=== PATIENT | female | born 1955 | race Caucasian/White ===

== ENCOUNTER → 2018-01-08 09:38 | Outpatient (CLI) | payer BC | END | disposition home or self-care (01) | LOC: D.MRI 09:38 | DX: G45.9 Transient cerebral ischemic attack, unspecified (principal) ==

== ENCOUNTER 2019-03-10 10:02 | Outpatient (CLI) | payer BC ==
[~2019-03-10] VITALS: Ht 162.6 cm; Wt 89.5 kg
--- NOTE | ~2019-03-10 | HEMODYNAMI ---
PATIENT:NANO BANERJEE MEDICAL RECORD: [id number] : 53 LOCATION:[facility] ADMISSION DATE: 03/10/19 Generatedon:03/10/201913:02 Patient name: NANO BANERJEE Patient #: [id number] SSN: : Date of study: 03/10/2019 Page: Of Hemodynamic Procedure Report Patient Data Patient Demographics Procedure consent was obtained First Name: NANO Gender: Female Last Name: : 1955 [facility] Initial: B Age: 63 year(s) Patient #: [id number] Race: Unknown Additional ID: [id number] Contact details [address]: [address] [place] [address] State: [place] City: [place] Zip code: [address] Past Medical History Allergies: No known allergies Admission Admission Data Admission Date: 03/10/2019 Admission Time: 10:02 Height (in.): 25.2 BSA: 1.4 (m2) Height (cm.): 64 BMI: 493.16 (kg/m2) Weight (lbs.): 445.34 Weight (kg.): 202 Lab Results Lab Result Date: 03/10/2019 Lab Result Time: 0:00 Biochemistry Name Units Result Min Max BUN mg/dl 16 --(---*)-- 7 18 Creatinine mg/dl 0.8 --(-*--)-- 0.6 1.3 CBC Name Units Result Min Max Hemoglobin g/dl 12.6 -*(----)-- 13.5 17.5 Procedure Procedure Types Cath Procedure Diagnostic Procedure C [facility] w/Coronaries Sedation Charges Moderate Sedation up to 15 minutes PCI Procedure Coronary Stent Coronary Stent Initial x2 Procedure Description Procedure Date Procedure Date: 03/10/2019 Procedure Start Time: 12:16 Procedure End Time: 12:39 Procedure Staff Name Function Jazmyne Eubanks RT Scrub Luis Chin RN Nurse Marco Antonio Guevara MD Performing Physician Kiara Tate RT Monitor Procedure Data Cath Procedure Fluoroscopy Diagnostic fluoroscopy Total fluoroscopy Time: 6.1 time: 6.1 min min Diagnostic fluoroscopy Total fluoroscopy dose: 692 dose: 692 mGy mGy Contrast Material Contrast Material Type Amount (ml) Isovue 300 96 Entry Location Entry Primary Successful Side Size Upsize Upsize Entry Closure Succes sful Closure Location (Fr) 1 (Fr) 2 (Fr) Remarks Device Remarks Radial Right 6 Fr artery Short Femoral Right 6 Fr Exoseal artery Short Estimated blood loss: 10 ml Diagnostic catheters Device Type Used For End Catheter Placement DIAGNOSTIC [place] 110cm 5 Procedure Fr catheter ([id number]) Procedure Complications No complications Procedure Medications Medication Administration Route Dosage Oxygen etCO2 Nasal cannula 2 l/min Lidocaine 2% added to field 20 Heparin Flush Bag added to field 2 bags (1000units/500ml NS) 0.9% NaCl I.V. 100 ml/hr Radial Cocktail I.A. 1 syringe (Verapomil 2mg/Nitro 400mcg/Heparin 1500units) Zofran I.V. 4 mg Versed I.V. 1 mg Fentanyl I.V. 50 mcg Versed I.V. 1 mg Fentanyl I.V. 50 mcg Radial Cocktail I.A. 1 syringe (Verapomil 2mg/Nitro 400mcg/Heparin 1500units) Heparin Bolus I.V. 4000 units Integrilin (Bolus I.V. 7.9 ml 2mg/ml) Plavix P.O. 600 mg Phenergan 25 mg Hemodynamics Rest BSA: 1.4 (m2) HGB: 12.6 (g/dl) O2 Consumption: Estimated: 147.45 (ml/min) O2 Con sumption indexed: Estimated:105.32 (ml/min/m) Heart Rate: 101 (bpm) Pressure Samples Time Site Value (mmHg) Purpose Heart Use Rate(bpm) 12:20 LV 92/10,24 Snapshot 101 12:20 LV 112/16,21 Pullback 92 12:20 AO 104/63(82) Pullback 92 Gradients Valve Time Site 1 Site 2 Mean SEP/DFP Peak To Heart Use (mmHg) (sec/min) Peak Rate (mmHg) (bpm) Aortic 12:20 LV AO 6 18 8 92 112/16,21 104/63(82) Calculations Valve P-P Mean Valve Index Valve Source Name Gradient Area Flow (cm2) Aortic 8 6 8 6 Snapshots Pre Cath Intra NCS Post Cath Vital Signs Time Heart Resp SPO2 etCO2 NIBP (mmHg) Rhythm Pain Sedation Rate (ipm) (%) (mmHg) Status Level (bpm) 12:09:32 67 69 94 17.1 139/73(94) NSR 0 (11) 10(A) , No pain 12:13:42 72 10 95 24.5 126/69(104) NSR 0 (11) 10(A) , No pain 12:17:49 78 19 96 35.6 110/63(82) NSR 0 (11) 10(A) , No pain 12:21:49 86 23 98 32.7 125/70(97) NSR 0 (11) 9(A) , No pain 12:25:55 83 17 97 34.9 128/68(100) NSR 0 (11) 9(A) , No pain 12:29:59 92 21 99 31.9 133/72(102) NSR 0 (11) 9(A) , No pain 12:34:04 88 27 100 32.7 146/76(103) NSR 0 (11) 10(A) , No pain 12:38:16 80 14 100 36.4 129/66(97) NSR 0 (11) 10(A) , No pain Medications Time Medication Route Dose Verified Delivered Reason Not es Effectiveness by by 12:07:38 Oxygen etCO2 2 l/min Marco Antonio Smith used for Nasal Ismael Chin RN procedure cannula 12:07:45 Lidocaine 2% added 20ml Marco Antonio Bernard for local to vial Ismael Guevara MD anesthetic field 12:07:52 Heparin Flush added 2 bags Marco Antonio Bernard used for Bag to Ismael Guevara MD procedure (1000units/500ml field NS) 12:08:05 0.9% NaCl I.V. 100 Marco Antoniolisa Smith used for ml/hr Ismael Chin RN procedure 12:08:25 Zofran I.V. 4 mg Marco Antonio Smith Per physician pt states Ismael Chin RN nausea with medications on empty stomach. 12:15:37 Versed I.V. 1 mg Marco Antonio Smith for sedation Ismael Chin RN 12:15:43 Fentanyl I.V. 50 mcg Marco Antonio Smith for sedation Ismael Chin RN 12:17:10 Radial Cocktail I.A. 1 Marco Antonio arthur (Verapomil syringe Ismael Guevara MD vasodilation 2mg/Nitro 400mcg/Hepari 12:21:50 Versed I.V. 1 mg Marco Antonio Smith for sedation Ismael Chin RN 12:21:53 Fentanyl I.V. 50 mcg Marco Antonio Smith for sedation Ismael Chin RN 12:23:01 Radial Cocktail I.A. 1 Marco Antonio arthur (Verapomil syringe Ismael Guevara MD vasodilation 2mg/Nitro 400mcg/Hepari 12:25:12 Heparin Bolus I.V. 4000 Marco Antonio Smith for aiden ified units Ismael Chin RN anticoagulation with dr guevara 12:26:10 Integrilin I.V. 7.9 ml Marco Antonio arthur was cira 2.1 (Bolus 2mg/ml) Ismael Chin RN antiplatelet ml of vial therapy 12:33:42 Plavix P.O. 600 mg Marco Antonio Smith for Ismael Chin RN antiplatelet therapy 12:52:03 Phenergan IM to 25 mg Marco Antonio Smith Per physician Pt dry RT GM. Ismael Chin RN heaving and states needs to vomit. Procedure Log Time Note 11:51:59 Patient Height : 25.2 inches 11:52:01 Patient Weight : 445.34 lbs 11:55:36 Lab Result : Hemoglobin 12.6 g/dl 11:55:36 Lab Result : Creatinine 0.8 mg/dl 11:55:36 Lab Result : BUN 16 mg/dl 11:56:28 Diagnostic Cath status Elective 11:56:31 Marco Antonio Guevara MD sent for patient. Start room use. 11:56:32 Time tracking: Regular hours (M-F 7:00 - 5:00) 11:56:38 Plan of Care:Hemodynamics will remain stable., Cardiac rhythm will remain stable., Comfort level will be maintained., Respiratory function will remain adequate., Patient/ family verbilizes understanding of procedure., Procedure tolerated without complication., Recovers from procedure without complications.. 11:56:47 Patient received from Pre/Post Procedure Room to CCL 2 Alert and oriented. Tansferred to table in Supine position. 11:56:49 Correct patient and procedure confirmed by team. 11:56:49 Warm blankets applied, and sigrid hugger turned on for patient comfort. 11:56:51 Signed procedure consent form obtained from patient. 11:56:53 ECG and BP/O2 sat monitors applied to patient. 11:57:03 H&P Date Dictated: 03/04/2019 Within 30 days and on chart., H&P Addendum completed by physician on day of procedure. (MUST COMPLETE FOR ALL OUTPATIENTS). 11:57:10 Family in waiting room. 11:57:13 Patient NPO since Midnight. 11:57:25 Patient allergic to No known allergies 12:01:52 Is the patient allergic to Iodine/contrast media? No. 12:01:53 Was the patient premedicated? No 12:01:54 Is patient on blood thinner?No 12:01:55 Patient diabetic? No. 12:01:58 Previous problem with sedation/anesthesia? No ? 12:01:59 Snore? Yes 12:02:00 Sleep apnea? No 12:02:01 Opens mouth fully? Yes 12:02:01 Deviated septum? No 12:02:02 Sticks out tongue? Yes 12:02:03 Airway obstruction? No ? 12:02:06 Dentures? No ? 12:02:11 Pre procedure: right dorsailis pedis pulse 2+ Normal; easily identifiable; not easily obliterated 12:02:13 Pre procedure: left dorsailis pedis pulse 2+ Normal; easily identifiable; not easily obliterated 12:02:15 Patient pain scale 0/10 ?. 12:02:20 IV patent on arrival in left antecubital with 0.9% NaCl at KVO. 12:02:23 Lab results completed and on chart. 12:02:26 Right Radial & Right Groin area was prepped with chlora-prep and draped in sterile fashion 12:02:27 Sharps counted by scrub and verified by R.N. 12:02:27 Alarms reviewed by R. N. 12:07:23 Use device set Radial Dx or PCI 12:07:25 Medline Cath Pack ([id number]) opened to sterile field. 12:07:25 ACIST Syringe (93863) opened to sterile field. 12:07:26 DIAGNOSTIC WIRE .035 260cm J wire (941351) opened to sterile field. 12:07:26 Bag Decanter (2002) opened to sterile field. 12:07:27 ACIST Manifold (30277) opened to sterile field. 12:07:27 ACIST Hand Control (24809) opened to sterile field. 12:07:28 Tegaderm 4 x 4 (1626W) opened to sterile field. 12:07:29 MBrace Wrist Support (715336666) opened to sterile field. 12:07:32 SHEATH 6FR Slender (79-3430) opened to sterile field. 12:07:38 Oxygen 2 l/min etCO2 Nasal cannula was administered by Luis Chin RN; used for procedure; 12:07:45 Lidocaine 2% 20ml vial added to field was administered by Marco Antonio Guevara MD; for local anesthetic; 12:07:52 Heparin Flush Bag (1000units/500ml NS) 2 bags added to field was administered by Marco Antonio Guevara MD; used for procedure; 12:08:05 0.9% NaCl 100 ml/hr I.V. was administered by Luis Chin RN; used for procedure; 12:08:24 Vital chart was started 12:08:25 Zofran 4 mg I.V. was administered by Luis Chin RN; Per physician; pt states nausea with medications on empty stomach. 12:13:14 Zero performed for pressure channel P1 12:14:58 Physician arrived 12:14:59 --------ALL STOP TIME OUT------ 12:15:00 Final Timeout: patient, procedure, and site verified with staff and physician. All members of the team are in agreement. 12:15:04 Right Radial & Right Groin site verified by team. 12:15:37 Versed 1 mg I.V. was administered by Luis Chin RN; for sedation; 12:15:43 Fentanyl 50 mcg I.V. was administered by Luis Chin RN; for sedation; 12:15:45 Maximum allowable Isovue 300 dose 300ml. Physician notified. (300ml for normal creatinines. For patients with creatinine of 1.7 or higher multiply weight(kg) x 5 divided by creatinine.) 12:15:50 Fire Safety Assessment: A--An alcohol-based skin anteseptic being used preoperatively., C--Open oxygen or nitrous oxide is being used., D--An ESU, laser, or fiber-optic light is being used. 12:15:55 Physical assessment completed. ASA score P 2 - A patient with mild systemic disease as per Marco Antonio Guevara MD. 12:16:00 Sedation plan: IV Moderate Sedation Medication:Versed, Fentanyl 12:16:08 Full Disclosure recording started 12:16:08 Procedure started. 12:16:14 Local anesthetic to right radial artery with Lidocaine 2% by Marco Antonio Guevara MD.INITIAL ACCESS ONLY 12:16:27 A 6 Fr Short sheath was inserted into the Right Radial artery 12:17:10 Radial Cocktail (Verapomil 2mg/Nitro 400mcg/Heparin 1500units) 1 syringe I.A. was administered by Marco Antonio Guevara MD; for vasodilation; 12:18:43 GLIDE WIRE ANGLE 260cm (KF3220) opened to sterile field. 12:19:04 A DIAGNOSTIC [place] 110cm 5 Fr catheter (093875) was advanced over the wire and used for Procedure. 12:19:07 LV gram done using BRUCE 12:20:50 EF : 60 % 12:20:54 LV angiography performed. 12:21:01 LCA angiography performed. 12::27 RCA angiography performed. 12::50 Versed 1 mg I.V. was administered by Luis Chin RN; for sedation; 12::53 Fentanyl 50 mcg I.V. was administered by Luis Chni RN; for sedation; 12:22:11 Catheter removed. 12:22:12 Proceeding to intervention. 12:23:01 Radial Cocktail (Verapomil 2mg/Nitro 400mcg/Heparin 1500units) 1 syringe I.A. was administered by Marco Antonio Guevara MD; for vasodilation; 12:24:16 Local anesthetic to right femoral artery with Lidocaine 2% by Marco Antonio Guevara MD.ADDITIONAL ACCESS 12::27 A 6 Fr Short sheath was inserted into the Right Femoral artery 12:24:38 6 Fr XBLAD3.5 guide catheter was inserted over the wire 12:24:53 choice pt ex wire advanced. 12:25:12 Heparin Bolus 4000 units I.V. was administered by Luis Chin RN; for anticoagulation; verified with dr guevara 12:26:10 Integrilin (Bolus 2mg/ml) 7.9 ml I.V. was administered by Luis Chin RN; for antiplatelet therapy; wasted 2.1 ml of vial 12:27:14 CHOICE PT Extra Support 182cm wire ([id number]) opened to sterile field. 12:27:14 GUIDE 6FR XBLAD 3.5 catheter ([id number]) opened to sterile field. 12:27:15 INFLATOR Merit BasixCompak (MU5531) opened to sterile field. 12:28:08 Place stent Inflation Number: 1 A MARIEL RX 2.5 x 08 stent ([id number]) was prepped and advanced across the Mid CX. The stent was deployed at 11 ARISTEO for 0:04 (min:sec). 12:28:17 Wire redirected to LAD. 12:28:21 Wire advanced across lesion. 12:30:25 Place stent Inflation Number: 1 A MARIEL RX 2.5 x 26 stent ([id number]) was prepped and advanced across the Prox LAD. The stent was deployed at 11 ARISTEO for 0:31 (min:sec). 12:31:05 Wire removed. 12:32:01 Guide catheter removed. 12:32:13 Sheath removed intact; hemostasis achieved with Exoseal to the Right Femoral artery. 12:32:48 Procedure ended.(Physican Out) 12:32:59 Fluoroscopy time 06.10 minutes. 12:33:05 Fluoroscopy dose: 692 mGy 12:33:05 Flurop Dose total: 692 12:33:11 Contrast amount:Isovue 300 96ml. 12:33:18 TR band inflated with 12cc of air. 12:33:36 TR BAND Standard ([id number]) opened to sterile field. 12:33:37 EXOSEAL 6Fr (EX600) opened to sterile field. 12:33:42 Plavix 600 mg P.O. was administered by Luis Chin RN; for antiplatelet therapy; 12:33:44 Insertion/operative site no bleeding no hematoma. 12:33:49 Post-op/insertion site Right Femoral artery dressed using a 4 x 4 and Tegaderm. 12:33:50 Post Procedure Pulses reassessed and unchanged 12:33:54 Post-procedure physical assessment completed. ASA score P 2 - A patient with mild systemic disease as per Marco Antonio Guevara MD. 12:33:57 Post procedure rhythm: unchanged. 12:34:02 Estimated blood loss: 10 ml 12:38:18 Post procedure instruction explained to patient.Patient verbalizes understanding. 12:38:43 Procedure type changed to Cath procedure, Diagnostic procedure, C, C w/Coronaries, Sedation Charges, Moderate Sedation up to 15 minutes, PCI procedure, Coronary Stent, Coronary Stent Initial x2 12:38:47 Procedure and supply charges have been captured, reviewed, submitted and are correct. 12:39:33 Procedure Complication : No complications 12:39:35 Vital chart was stopped 12:39:36 See physician's report for complete and final results. 12:39:38 Report given to Pre/Post Procedure Room. 12:39:40 Full Disclosure recording stopped 12:39:40 Procedure ended. 12:39:44 End room use (Document Last) 12:39:52 ACC-PCI Only Patient was given prescriptions, or instructed by Marco Antonio Guevara MD to start/continue the following medications upon discharge: Aspirin, Plavix 12:52:03 Phenergan 25 mg IM to RT GM. was administered by Luis Chin RN; Per physician; Pt dry heaving and states needs to vomit. Intervention Summary Intervention Notes Time ActionType Lesion and Equipment Used Action# Pressure Duration Attributes 12:28:08 Place stent Mid CX MARIEL RX 2.5 x 1 11 00:04 08 stent ([id number]) 12:30:25 Place stent Prox LAD MARIEL RX 2.5 x 1 11 00:31 26 stent ([id number]) Device Usage Item Name Manufacture Quantity Catalog Number Hospital Part Current M inimal Lot# / Charge Number Stock Stock Serial# Code ACIST Syringe Acist 1 06446 780800 163368 055546 2 0 (12248) Medical Systems Inc Medline Cath Medline 1 [id number] 879100 81156 383436 5 Pack ([id number]) Bag Decanter Microtek 1 691838 78390 005682 5 () Medical Inc. DIAGNOSTIC St [place] 1 345601 603486 000073 978707 3 0 WIRE .035 260cm J wire (328641) ACIST Hand Acist 1 97660 734729 143351 576125 5 Control Medical (76303) Systems Inc ACIST Manifold Acist 1 28373 545688 460724 779645 5 (80849) Medical Systems Inc Tegaderm 4 x 4 3M 1 1626W 323641 171394 514674 5 (1626W) MBrace Wrist Advanced 1 140-0250-00 740166 85562 728846 5 Support Vascular (957498144) Dynamics SHEATH 6FR Terumo 1 [id number] 366485 153366 102217 5 Slender (80-1060) GLIDE WIRE Terumo 1 TI9327 655056 456286 112245 5 ANGLE 260cm (NI9732) DIAGNOSTIC Terumo 1 40-5013 124671 911245 862129 5 [place] 110cm 5 Fr catheter (510044) GUIDE 6FR Cardinal 1 [id number] 663662 660896 685327 1 0 XBLAD 3.5 Health catheter (70220476) CHOICE PT Trosper 1 [id number] 213276 921573 030317 5 Extra Support Scientific 182cm wire (0470073P7) INFLATOR Merit Merit 1 WR3594 807461 073585 494408 1 5 [employer] technology[facility] Medical (KZ2763) MARIEL RX 2.5 x Medtronic 1 [id number] 722280 0893848 019989 5 [id number] 08 stent ([id number]) MARIEL RX 2.5 x Medtronic 1 [id number] 867877 5276585 757238 5 [id number] 26 stent ([id number]) TR BAND Terumo 1 IOP66-VOD 192950 804508 188688 4 0 Standard (PVT40OWN) EXOSEAL 6Fr Cardinal 1 EX600 258190 500103 830020 1 0 (EX600) Health Signature Audit [place] Stage Time Signature Unsigned Intra-Procedure 03/10/2019 Kiara Tate 12:41:22 PM RT(R) RT(R) 03/10/2019 12:51:32 PM Intra-Procedure 03/10/2019 Jazmyne Eubanks 1:02:09 PM RT(R) Signatures Monitor : Kiara Tate Signature : RT Date : Time : [facility] [address] [place] [address]
[2019-03-10] MEDS ORDERED: LEVOTHYROXINE112 MCG PO (10:14)
[2019-03-10] MEDS ORDERED: LISINOPRIL10 MG PO (10:14)
[2019-03-10] MEDS ORDERED: ZOCOR10 MG PO (10:14)
[2019-03-10] MEDS ORDERED: VITAMIN D250000 UNIT PO (10:16)
[2019-03-10] MEDS ORDERED: OMEGA-3100 MG PO (10:17)
[2019-03-10] MEDS ORDERED: CO Q-10100 MG PO (10:17)
[2019-03-10] MEDS ORDERED: B-12 DOTS500 MCG PO (10:18)
[2019-03-10 10:31] VITALS: BP 168/76; Ht 162.6 cm; Wt 89.5 kg
[2019-03-10 10:46] LABS: BASOPHILS 0.2 % (0-2); EOSINOPHILS 3.5 % (0-7); HEMATOCRIT 37.6 % (36.0-48.0); HEMOGLOBIN 12.6 g/dL (12-16); MCH 38.3 pg (26.0-34.0); MCHC 33.5 g/dL (31.0-37.0); MCV 114.3 fL (80.0-100.0); MEAN PLATELET VOLUME 9.7 fL (7.4-10.4); MONOCYTES 9.8 % (2-11); NEUTROPHILS 50.5 % (40-80); PLATELET COUNT 226 10x3/uL (130-400); RBC 3.29 10x6/uL (4.00-5.40); RDW 13.9 % (11.5-14.5); WBC 6.3 10x3/uL (4.8-10.8)
[2019-03-10 10:58] LABS: CALC OSMOLALITY 278 mosm/kg (275-300); CALCIUM 8.6 mg/dL (8.5-10.1); CARBON DIOXIDE 27.4 mmol/L (21.0-32.0); CHLORIDE - SERUM 104 mmol/L (98-107); CREATININE - SERUM 0.8 mg/dL (0.6-1.3); GLUCOSE 97 mg/dL (74-106); SODIUM 139 mmol/L (136-145); UREA NITROGEN 16 mg/dL (7-18); eGFR NON AFRICAN AMERICAN 76 mL/min (90-120)
[2019-03-10] MEDS ORDERED: PLAVIX75 MG PO (12:45)
--- NOTE | 2019-03-10 13:05 | NUR ---
PT RECEIVED VIA STRETCHER FROM CABINET FINISHER FOR RECOVERY. PT DROWSY BUT AWAKE. TR BAND AND IMMOBILIZER TO R WRIST IN PLACE, DRESSING CDI NO BLEEDING OR HEMATOMA NOTED. 6FR EXOCELE TO R GROIN, DRESSING CDI NO BLEEDING OR HEMATOMA NOTED. R LEG PINK/WARM PEDAL PULSES PALPABLE. PT INSTRUCTED TO KEEP HEAD ON PILLOW AND R LEG STRAIGHT. HR NSR RATE 79 BP 179/77, O2 SAT 99 ON 2L/NC O2. FAMILY AT BEDSIDE. PT DENIES ANY PAIN OR DISCOMFORT. C/O NAUSEA BACK IN CABINET FINISHER AND PHENERGAN GIVEN. CALL LIGHT IN REACH
--- NOTE | 2019-03-10 13:15 | NUR ---
PT RESTING COMFORTABLY. R WRIST W TR BAND IN PLACE NO BLEEDING OR SWELLING NOTED. R GROIN SOFT DRESSING CDI NO BLEEDING OR SWELLING NTOED. FAMILY AT BEDSIDE. PT STATES NAUSEA IS MUCH BETTER, SIPS OF SPRITE GIVEN. CALL LIGHT IN REACH. VSS. O2 REMOVED PER PT REQUEST, O2 SAT 97 ON ROOM AIR.
[2019-03-10] MEDS ORDERED: ASPIRIN81 MG PO (13:22)
--- NOTE | 2019-03-10 13:45 | NUR ---
TR BAND TO R/WRIST IS CDI AND 6 FR EXOSEAL R/GROIN IS CDI PATIENT DENIED PAIN OR NEEDS. HR79 BP 148/68 CHEST PAIN IS DENIED
--- NOTE | 2019-03-10 14:00 | NUR ---
PT C/O NAUSEA, VOMITED MOD AMOUNT. ORDERS RECEIVED, ZOPRAN 4MG GIVEN IVP. COOL CLOTH TO FOREHEAD. TR BAND TO R WRIST IN PLACE, DRESSING REMAINS CDI NO BLEEDING OR SWELLING. R GROIN DRESSING CDI NO BLEEDING OR SWELLING NOTED. PEDAL PULSES PALPABLE. VSS. PT DENIES ANY OTHER PAIN OR NEEDS. FAMILY AT BEDSIDE, CALL LIGHT IN REACH.
--- NOTE | 2019-03-10 14:30 | NUR ---
PT RESTING COMFORTABLY, STATES NAUSEA IS MUCH BETTER. R WRIST DRESSING CDI NO BLEEDING OR SWELLING NOTED. R GROIN DRESSING CDI NO BLEEDING OR HEMATOMA NOTED. VSS, FAMILY AT BEDSIDE. CALL LIGHT AT BEDSIDE.
--- NOTE | 2019-03-10 14:58 | NUR ---
PT STATES SLIGHT NAUSEA, BP 102/63, IV FLUIDS OPENED FOR BOLUS. HR 68, 02 SAT 97% ON ROOM AIR. R TR BAND AND IMMOBILIZER IN PLACE, DRESSING CDI NO BLEEDING OR SWELLING NOTED. R GROIN DRESSING CDI NO BLEEDING OR SWELLING NOTED. CALL LIGHT IN REACH, FAMILY AT BEDSIDE.
--- NOTE | 2019-03-10 15:11 | NUR ---
BP BETTER, 131/65. PT SLEEPING, FAMILY STATES NO MORE C/O NAUSEA.
--- NOTE | 2019-03-10 15:45 | NUR ---
HEAD OF BED INC TO 30 DEGREES. TOLERATED WELL. 3cc OF AIR REMOVED FROM TR BAND. NO BLEEDING/HEMATOMA NOTED. PT SET UP WITH JELLO AND DRINK. DID NOT WANT SANDWICH TRAY. DENIES NAUSEA, BUT SHE "DON'T WANNA CHANCE IT". FAMILY AT BEDSIDE. VSS. RIGHT GROIN DRESSING C/D/I. NO S/S OF HEMATOMA NOTED.
--- NOTE | 2019-03-10 16:10 | NUR ---
3cc OF AIR REMOVED FROM TR BAND. PT TOLERATED JELLO. DENIES NAUSEA. VSS. NO BLEEDING/HEMATOMA NOTED TO RIGHT WRIST. FAMILY AT BEDSIDE.
--- NOTE | 2019-03-10 16:50 | NUR ---
LEFT ARM PIV D/C'D WITH CATH TIP INTACT. PT TOLERATED WELL. PT INSTRUCTED TO GET DRESSED. FAMILY AT BEDSIDE TO ASSIST.
--- NOTE | 2019-03-10 17:00 | NUR ---
DISCUSSED DISCHARGE INSTRUCTIONS WITH PT AND PT'S FAMILY. THEY VOICED UNDERSTANDING. PT TAKEN TO RESTROOM BY WHEELCHAIR. VOIDED WITHOUT DIFFICULTY.
--- NOTE | 2019-03-10 17:15 | NUR ---
PT TAKEN OUT TO VEHICLE BY WHEELCHAIR. NO S/S OF DISTRESS NOTED. ALL PAPERWORK AND BELONGINGS IN HAND.
[2019-03-11] MEDS ORDERED: CELEXA20 MG PO (21:17)
[2019-03-11] MEDS ORDERED: RANITIDINE HCL150 M1 PO (21:18)
--- NOTE | 2019-03-12 15:12 | OP ---
PATIENT NAME: NANO BANERJEE MEDICAL RECORD: [id number] :53 LOCATION:D.CAT ADMISSION DATE: SURGEON: ASTRID ROCKWELL MD DATE OF OPERATION: 03/10/2019 PROCEDURES: 1. PTCA stent LAD. 2. PTCA stent left circumflex. 3. Left heart catheterization. 4. Selective coronary angiography. 5. Left ventriculogram. INDICATION: Angina and coronary artery disease. PROCEDURE PERFORMED: After informed consent was obtained and after detailed description of risks, benefits as well as alternative therapies, the patient elected to proceed with angiogram and angioplasty. The right femoral area was prepped and draped in normal sterile fashion. Right femoral artery was cannulated via modified Seldinger technique with placement of 6-Indones[place] sheath. All catheters exchanged through this sheath. FINDINGS: Left ventriculogram performed in standard 30-degree BRUCE view, reveals good cardiac wall motion throughout all segments. Overall ejection fraction estimated 60%. SELECTIVE CORONARY ANGIOGRAPHY: 1. Left main is with no significant angiographic disease. 2. Left anterior descending had 90% stenosis proximally. 3. The left circumflex has 80% stenosis in mid vessel. 4. Right coronary has mild irregularities, but no flow-limiting stenosis. PTCA STENT OF THE LAD AND CIRCUMFLEX: The LAD was addressed with a 2.5 x 26 mm Kareem, the left circumflex was addressed with a 2.5 x 8 mm Kareem. Result was 0% residual. IMPRESSION: Successful PTCA stent of the LAD and circumflex, both going from 80% to 90% initial stenosis to 0% residual. TRANSINT:[id number] Voice Confirmation ID: [id number] DOCUMENT ID: [id number] ASTRID ROCKWELL MD at 1512 CC: [id number] DICTATION DATE: 03/10/19 1242 BEADING SAWYER: 03/10/19 1358 DEP CLI 03/10/19 [place] [id number]
== END 2019-03-10 17:15 | disposition home or self-care (01) ==
LOC: D.CATH 10:02
PROVIDERS: ATTEND Internal Medicine Interventional Cardiology
DX: I25.119 Atherosclerotic heart disease of native coronary artery with unspecified angina pectoris (principal); Z01.812 Encounter for preprocedural laboratory examination

== ENCOUNTER 2019-03-11 05:28 | Observation (INO) | payer BC ==
[2019-03-11] VITALS (11 sets, daily range): BP systolic 104–155; BP diastolic 51–72; Ht 162.6 cm; Wt 89.5 kg
[~2019-03-11] VITALS: Ht 162.6 cm; Wt 89.5 kg
--- NOTE | ~2019-03-11 | DS ---
PATIENT:NANO BANERJEE :53 MEDICAL RECORD: [id number] DISCHARGE SUMMARY ADMISSION DATE: 03/11/19 DISCHARGE DATE: 03/12/19 DISCHARGE DIAGNOSES: 1. Unstable angina. 2. Coronary artery disease. 3. PTCA and stent of LAD diagonal on this admission. 5. Hypertension. 6. Hyperlipidemia. HOSPITAL COURSE: Mrs. Banerjee presents with unstable anginal symptomatology one day after her PTCA and stent of the LAD. 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 She did not take her Plavix, so she effectively underwent PTCA and stent with no Plavix loading. We loaded her with Integrilin and gave her epi. She did have stenosis of diagonal branch that took off in the stented area and she underwent successful PTCA and stent of that with no further anginal symptomatology. I discharged home to continue her aspirin and Plavix. TRANSINT:[id number] Voice Confirmation ID: [id number] DOCUMENT ID: [id number] ASTRID ROCKWELL MD CC: [id number] DICTATION DATE: 03/12/19 0755 CARE MANAGEMENT ASSISTANT: 03/13/19 0049 DIS IN 03/12/19 [facility] [address] [id number]
--- NOTE | ~2019-03-11 | HEMODYNAMI ---
PATIENT:NANO BANERJEE MEDICAL RECORD: [id number] : 53 [facility]ATION[facility] [id number] ADMISSION DATE: 03/11/19 Generatedon:03/11/20199:08 Patient name: NANO BANERJEE Patient #: [id number] SSN: : Date of study: 03/11/2019 Page: Of Hemodynamic Procedure Report Patient Data Patient Demographics Procedure consent was obtained First Name: NANO Gender: Female Last Name: : 1955 [facility] Initial: B Age: 63 year(s) Patient #: [id number] Race: Unknown Additional ID: [id number] Contact details [address]: [address] [place] [address] State: [place] City: [place] Zip code: [address] Past Medical History Allergies: No known allergies Admission Admission Data Admission Date: 03/11/2019 Admission Time: 5:55 Room #: D.2306 Lab Results Lab Result Date: 03/10/2019 Lab Result Time: 0:00 Biochemistry Name Units Result Min Max BUN mg/dl 16 --(---*)-- 7 18 Creatinine mg/dl 0.8 --(-*--)-- 0.6 1.3 CBC Name Units Result Min Max Hemoglobin g/dl 12.6 -*(----)-- 13.5 17.5 Procedure Procedure Types Cath Procedure Diagnostic Procedure LHC Coronaries only PCI Procedure Coronary Stent Coronary Stent Initial PTCA PTCA Additional Procedure Description Procedure Date Procedure Date: 03/11/2019 Procedure Start Time: 8:37 Procedure End Time: 9:07 Procedure Staff Name Function Marco Antonio Guevara MD Performing Physician Hugh Zamora RT Monitor Jazmyne Eubanks RT Scrub Desmond Blount RN Nurse Procedure Data Cath Procedure Fluoroscopy Diagnostic fluoroscopy Total fluoroscopy Time: 6.6 time: 6.6 min min Diagnostic fluoroscopy Total fluoroscopy dose: 853 dose: 853 mGy mGy Contrast Material Contrast Material Type Amount (ml) Isovue 300 83 Entry Location Entry Primary Successful Side Size Upsize Upsize Entry Closure Succes sful Closure Location (Fr) 1 (Fr) 2 (Fr) Remarks Device Remarks Femoral Left 6 Fr Exoseal artery Short Estimated blood loss: 10 ml Procedure Complications No complications Procedure Medications Medication Administration Route Dosage 0.9% NaCl I.V. 100 ml/hr Oxygen etCO2 Nasal cannula 2 l/min Heparin Flush Bag added to field 2 bags (1000units/500ml NS) Lidocaine 2% added to field 20 Effient P.O. 60 mg Versed I.V. 1 mg Fentanyl I.V. 50 mcg Integrilin (Bolus I.V. 7.9 ml 2mg/ml) Integrilin (Bolus wasted 2.1 ml 2mg/ml) Integrilin Drip I.V. drip 14.2 ml/hr (75mg/100ml) Heparin Drip 800 units/hr (69507enyhm/250 D5W) Nitro (50mg/250 D5W) 5 mcg/min Hemodynamics Rest HGB: 12.6 (g/dl) Heart Rate: 106 (bpm) Snapshots Pre Cath Intra NCS Post Cath Vital Signs Time Heart Resp SPO2 etCO2 NIBP (mmHg) Rhythm Pain Sedation Rate (ipm) (%) (mmHg) Status Level (bpm) 8:36:51 95 12 97 0 177/90(122) NSR 0 (11) 10(A) , No pain 8:41:07 99 18 92 0 167/89(132) NSR 0 (11) 10(A) , No pain 8:46:35 97 17 98 0 190/109(148) NSR 0 (11) 9(A) , No pain 8:51:07 95 16 98 0 184/87(123) NSR 0 (11) 9(A) , No pain 8:55:32 96 11 98 0 161/77(108) NSR 0 (11) 9(A) , No pain 8:59:58 90 10 99 0 161/82(120) NSR 0 (11) 9(A) , No pain 9:04:22 90 10 100 0 148/75(112) NSR 0 (11) 9(A) , No pain Medications Time Medication Route Dose Verified Delivered Reason Notes Effectiveness by by 8:31:00 0.9% NaCl I.V. 100 Desmond Desmond Per physician ml/hr Mine Blount RN RN 8:34:18 Oxygen etCO2 Nasal 2 l/min Desmond Desmond for low 02 sa ts cannula Mine Blount RN RN 8:34:30 Heparin Flush added to 2 bags Desmond Desmond used for Bag field Lorigan Lordelbert procedure (1000units/500ml RN RN NS) 8:34:41 Nitro (50mg/250 I.V. 5 Desmond Desmond for D5W) drip(infusing mcg/min Lorigan Lorigan vasodilation upon arrival RN RN and turned off) 8:34:44 Heparin Drip I.V. 800 Desmond Desmond for (13554ybtlc/250 drip(infusing units/hr Lorigan Lorigan anticoagulation D5W) upon arrival RN RN and turned off) 8:34:46 Lidocaine 2% added to 20ml Desmond Desmond for local field vial Lordelbert Blount anesthetic RN RN 8:34:59 Effient P.O. 60 mg Desmond Desmond for Lorigan Mine antiplatelet RN RN therapy 8:35:21 Versed I.V. 1 mg Desmond Desmond for sedation Mine Blount RN RN 8:35:30 Fentanyl I.V. 50 mcg Desmond Desmond for sedation Mine Blount RN RN 8:40:28 Integrilin I.V. 7.9 ml Desmond Desmond for (Bolus 2mg/ml) Mine Blount antiplatelet RN RN therapy 8:40:42 Integrilin wasted 2.1 ml Desmond Desmond to sharp's (Bolus 2mg/ml) Mine Blount RN RN 8:49:33 Integrilin Drip I.V. drip 14.2 Desmond Desmond for (75mg/100ml) ml/hr Lordelbert Blount antiplatelet RN RN therapy Procedure Log Time Note 8:03:34 Hugh Zamora RT(R) sent for patient. Start room use. 8:03:35 Time tracking: Regular hours (M-F 7:00 - 5:00) 8:03:40 Plan of Care:Hemodynamics will remain stable., Cardiac rhythm will remain stable., Comfort level will be maintained., Respiratory function will remain adequate., Patient/ family verbilizes understanding of procedure., Procedure tolerated without complication., Recovers from procedure without complications.. 8:25:27 Patient received from ICU to [facility] 2 Alert and oriented. Madisferred to table in Supine position. 8:25:28 Warm blankets applied, and sigrid hugger turned on for patient comfort. 8:25:29 Correct patient and procedure confirmed by team. 8:25:30 Signed procedure consent form obtained from patient. 8:25:31 ECG and BP/O2 sat monitors applied to patient. 8:30:43 Vital chart was started 8:31:00 0.9% NaCl 100 ml/hr I.V. was administered by Desmond Blount RN; Per physician; 8:33:11 Baseline sample Acquired. 8:33:18 Rhythm: sinus rhythm 8:33:20 Full Disclosure recording started 8:33:26 H&P Date Dictated: 03/11/2019 Emergent; H&P N/A. 8:33:27 Pre-procedure instructions explained to patient. 8:33:27 Pre-op teaching completed and patient verbalized understanding. 8:33:30 Family in waiting room. 8:33:31 Patient NPO since Midnight. 8:33:32 Is the patient allergic to Iodine/contrast media? No. 8:33:34 Is patient on blood thinner?Unknown 8:33:37 Patient diabetic? No. 8:34:13 Previous problem with sedation/anesthesia? No ? 8:34:14 Snore? Yes 8:34:15 Sleep apnea? No 8:34:16 Deviated septum? No 8:34:17 Opens mouth fully? Yes 8:34:18 Oxygen 2 l/min etCO2 Nasal cannula was administered by Desmond Blount RN; for low 02 sats; 8:34:18 Sticks out tongue? Yes 8:34:21 Airway obstruction? No ? 8:34:23 Dentures? No ? 8:34:27 Pre procedure: left dorsailis pedis pulse 1+ Palpable, but thready & weak; easily obliterated 8:34:30 Heparin Flush Bag (1000units/500ml NS) 2 bags added to field was administered by Desmond Blount RN; used for procedure; 8:34:33 Patient pain scale 0/10 ?. 8:34:37 IV patent on arrival in left hand with 0.9% NaCl at [facility]. 8:34:40 Lab results completed and on chart. 8:34:41 Nitro (50mg/250 D5W) 5 mcg/min I.V. ip(infusing upon arrival and turned off) was administered by Desmond Blount RN; for vasodilation; 8:34:44 Heparin Drip (54778zmovh/250 D5W) 800 units/hr I.V. drip(infusing upon arrival and turned off) was administered by Desmond Blount RN; for anticoagulation; 8:34:46 Lidocaine 2% 20ml vial added to field was administered by Desmond Blount RN; for local anesthetic; 8:34:59 Effient 60 mg P.O. was administered by Desmond Blount RN; for antiplatelet therapy; 8:35:00 Left groin area was prepped with chlora-prep and draped in sterile fashion 8:35:01 Alarms reviewed by R. N. 8:35:02 Sharps counted by scrub and verified by R.N. 8:35:04 --------ALL STOP TIME OUT------ 8:35:05 Final Timeout: patient, procedure, and site verified with staff and physician. All members of the team are in agreement. 8:35:07 Left groin site verified by team. 8:35:10 Maximum allowable Isovue 300 dose 300ml. Physician notified. (300ml for normal creatinines. For patients with creatinine of 1.7 or higher multiply weight(kg) x 5 divided by creatinine.) 8:35:14 Fire Safety Assessment: A--An alcohol-based skin anteseptic being used preoperatively., C--Open oxygen or nitrous oxide is being used., D--An ESU, laser, or fiber-optic light is being used. 8:35:17 Physical assessment completed. ASA score P 2 - A patient with mild systemic disease as per Marco Antonio Guevara MD. 8:35:20 Sedation plan: IV Moderate Sedation Medication:Versed, Fentanyl 8:35:21 Versed 1 mg I.V. was administered by Desmond Blount RN; for sedation; 8:35:27 Use device set Radial Dx or PCI 8:35:30 Fentanyl 50 mcg I.V. was administered by Desmond Blount RN; for sedation; 8:35:30 Tegaderm 4 x 4 (1626W) opened to sterile field. 8:35:31 ACIST Manifold (74530) opened to sterile field. 8:35:32 ACIST Hand Control (56348) opened to sterile field. 8:35:33 ACIST Syringe (41044) opened to sterile field. 8:35:34 Medline Cath Pack ([id number]) opened to sterile field. 8:35:35 Bag Decanter (2002) opened to sterile field. 8:35:38 DIAGNOSTIC WIRE .035 260cm J wire (742239) opened to sterile field. 8:35:41 Use device set [facility] PCI 8:35:46 SHEATH 6FR [place] (AUB460) opened to sterile field. 8:36:44 CHOICE PT Extra Support 182cm wire (8536959Q2) opened to sterile field. 8:36:48 INFLATOR Merit BasixCompak (NE9148) opened to sterile field. 8:36:51 GUIDE 6FR XBLAD 3.5 catheter (56193097) opened to sterile field. 8:36:57 Procedure started. 8:37:04 Local anesthetic to left femerol artery with Lidocaine 2% by Marco Antonio Guevara MD.INITIAL ACCESS ONLY 8:37:20 A 6 Fr Short sheath was inserted into the Left Femoral artery 8:38:02 6 Fr XBLAD 3.5 guide catheter was inserted over the wire 8:38:12 LCA angiography performed. 8:38:31 CPTXS wire advanced. 8:39:35 Wire advanced across lesion. 8:40:28 Integrilin (Bolus 2mg/ml) 7.9 ml I.V. was administered by Desmond Blount RN; for antiplatelet therapy; 8:40:39 Inflate balloon Inflation number: 1 A EUPHORA 1.5 x 12 balloon ([id number]) was prepped and advanced across the 1st Diag, then inflated to 13 ARISTEO for 0:10 (min:sec). 8:40:42 Integrilin (Bolus 2mg/ml) 2.1 ml wasted was administered by Desmond Blount RN; to sharp's; 8:41:40 Balloon removed over the wire. 8:43:31 The MARIEL RX 2.0 x 8 stent ([id number]) was advanced then removed because of failure to cross lesion 8:43:43 Inflate balloon Inflation number: 2 A EUPHORA 2.0 x 12 Balloon ([id number]) was prepped and advanced across the 1st Diag, then inflated to 15 ARISTEO for 0:10 (min:sec). 8:46:43 Balloon removed over the wire. 8:46:51 The MARIEL RX 2.0 x 8 stent ([id number]) was advanced then removed because of failure to cross lesion 8:48:06 Inflate balloon Inflation number: 1 A EUPHORA 2.5 x 10 Balloon ([id number]) was prepped and advanced across the Mid LAD, then inflated to 17 ARISTEO for 0:10 (min:sec). 8:49:06 Balloon removed over the wire. 8:49:29 Place stent Inflation Number: 3 A MARIEL RX 2.0 x 8 stent ([id number]) was prepped and advanced across the 1st Diag. The stent was deployed at 11 ARISTEO for 0:10 (min:sec). 8:49:33 Integrilin Drip (75mg/100ml) 14.2 ml/hr I.V. drip was administered by Desmond Blount RN; for antiplatelet therapy; 8:52:46 Stent catheter was removed intact over wire. 8:52:47 Wire removed. 8:52:47 Guide catheter removed. 8:52:55 EXOSEAL 6Fr (EX600) opened to sterile field. 8:53:11 Sheath removed intact; hemostasis achieved with Exoseal to the Left Femoral artery. 8:53:14 Procedure ended.(Physican Out) 8:53:44 Fluoroscopy time 06.60 minutes. 8:53:48 Fluoroscopy dose: 853 mGy 8:53:48 Flurop Dose total: 853 8:53:53 Contrast amount:Isovue 300 83ml. 8:53:55 Sharps counted by scrub and verified by R.N. 8:53:56 Insertion/operative site no bleeding no hematoma. 8:54:00 Post-op/insertion site Left Femoral artery dressed using a 4 x 4 and Tegaderm. 8:54:02 Post Procedure Pulses reassessed and unchanged 8:54:06 Post-procedure physical assessment completed. ASA score P 2 - A patient with mild systemic disease as per Marco Antonio Guevara MD. 8:54:09 Post procedure rhythm: unchanged. 8:54:12 Estimated blood loss: 10 ml 8:54:14 Post procedure instruction explained to patient.Patient verbalizes understanding. 8:54:14 Patient needs reinforcement of post procedure teaching. 8:54:31 Procedure type changed to Cath procedure, Diagnostic procedure, LHC, Coronaries only, PCI procedure, Coronary Stent, Coronary Stent Initial, PTCA, PTCA Additional 8:54:39 Procedure and supply charges have been captured, reviewed, submitted and are correct. 8:54:42 Procedure Complication : No complications 9:05:43 Vital chart was stopped 9:05:44 See physician's report for complete and final results. 9:06:58 Report given to PCU. 9:07:01 Patient transfered to PCU with Bed. 9:07:04 Procedure ended. 9:07:04 Full Disclosure recording stopped 9:07:09 End room use (Document Last) Intervention Summary Intervention Notes Time ActionType Lesion and Equipment Used Action# Pressure Duration Attributes 8:40:39 Inflate 1st Diag EUPHORA 1.5 x 1 13 00:10 balloon 12 balloon ([id number]) 8:43:31 Discard MARIEL RX 2.0 x Stent 8 stent ([id number]) 8:43:43 Inflate 1st Diag EUPHORA 2.0 x 2 15 00:10 balloon 12 Balloon ([id number]) 8:46:51 Discard MARIEL RX 2.0 x Stent 8 stent ([id number]) 8:48:06 Inflate Mid LAD EUPHORA 2.5 x 1 17 00:10 balloon 10 Balloon ([id number]) 8:49:29 Place stent 1st Diag MARIEL RX 2.0 x 3 11 00:10 8 stent ([id number]) Device Usage Item Name Manufacture Quantity Catalog Number Hospital Part Current M inimal Lot# / Charge Number Stock Stock Serial# Code Tegaderm 4 x 4 3M 1 1626W 119825 075846 807235 5 (1626W) ACIST Manifold Acist 1 16609 571033 536079 705642 5 (16735) Medical Systems Inc ACIST Hand Acist 1 94688 868500 339648 385644 5 Control Medical (99859) Systems Inc ACIST Syringe Acist 1 97564 656219 834892 752411 2 0 (82863) Medical Systems Inc Medline Cath Medline 1 [id number] 490672 37996 257079 5 Pack ([id number]) Bag Decanter Microtek 1 2001S 963019 11769 717627 5 (2001S) Medical Inc. DIAGNOSTIC St Darren 1 195274 471547 798698 340388 3 0 WIRE .035 260cm J wire (360481) SHEATH 6FR Terumo 1 AAD027 992565 867810 390647 4 0 [place] (SQR013) CHOICE PT Hurt 1 [id number] 435630 797718 268243 5 Extra Support Scientific 182cm wire ([id number]) INFLATOR Merit Merit 1 EK2216 855946 019097 236739 1 5 Benbria (QD2552) GUIDE 6FR Cardinal 1 66877625 682203 419272 005074 1 0 XBLAD 3.5 Health catheter (75139632) EUPHORA 1.5 x Medtronic 1 QSI0005M 446394 072163 444906 5 [id number] 12 balloon ([id number]) MARIEL RX 2.0 x Medtronic 2 [id number] 777330 9472155 174361 5 [id number] 8 stent [id number] ([id number]) EUPHORA 2.0 x Medtronic 1 [id number] 086324 964440 781856 5 [id number] 12 Balloon ([id number]) EUPHORA 2.5 x Medtronic 1 [id number] 845775 021319 565518 5 [id number] 10 Balloon ([id number]) EXOSEAL 6Fr Cardinal 1 EX600 038731 267936 508530 1 0 (EX600) Health Signature Audit [place] Stage Time Signature Unsigned Intra-Procedure 03/11/2019 Hugh Zamora 9:08:21 AM RT(R) Signatures Monitor : Hugh Zamora RT Signature : Date : Time : [facility] [address] [place] [address]
[~2019-03-11 05:28] MED LIST: ASPIRIN81 MG PO; B-12 DOTS500 MCG PO; CO Q-10100 MG PO; LEVOTHYROXINE112 MCG PO; LISINOPRIL10 MG PO; OMEGA-3100 MG PO; PLAVIX75 MG PO; VITAMIN D250000 UNIT PO; ZOCOR10 MG PO
[2019-03-11 05:55] LABS: BASOPHILS 0.1 % (0-2); EOSINOPHILS 0.3 % (0-7); HEMATOCRIT 35.6 % (36.0-48.0); HEMOGLOBIN 11.7 g/dL (12-16); IMMATURE GRANULOCYTES 0.3 % (0-5); LYMPHOCYTES 16.8 % (15-50); MCH 37.4 pg (26.0-34.0); MCHC 32.9 g/dL (31.0-37.0); MCV 113.7 fL (80.0-100.0); MONOCYTES 7.4 % (2-11); NEUTROPHILS 75.1 % (40-80); PLATELET COUNT 221 10x3/uL (130-400); RBC 3.13 10x6/uL (4.00-5.40); RDW 13.9 % (11.5-14.5); WBC 13.8 10x3/uL (4.8-10.8)
[2019-03-11 05:59] LABS: INR 1.01 (0.85-1.17); PROTIME 12.8 SECONDS (11.6-15.0)
[2019-03-11 06:09] LABS: ALBUMIN 3.3 g/dL (3.4-5.0); ALKALINE PHOSPHATASE 103 U/L (46-116); ALT (SGPT) 23 U/L (10-68); CALC OSMOLALITY 285 mosm/kg (275-300); CALCIUM 8.4 mg/dL (8.5-10.1); CARBON DIOXIDE 24.6 mmol/L (21.0-32.0); CHLORIDE - SERUM 107 mmol/L (98-107); CREATININE - SERUM 0.9 mg/dL (0.6-1.3); POTASSIUM - SERUM 4.4 mmol/L (3.5-5.1); PROTEIN - SERUM 7.1 g/dL (6.4-8.2); SODIUM 141 mmol/L (136-145); UREA NITROGEN 19 mg/dL (7-18); eGFR NON AFRICAN AMERICAN 67 mL/min (90-120)
[2019-03-11 06:10] LABS: GLUCOSE 149 mg/dL (74-106)
[2019-03-11 06:26] LABS: CKMB 4.5 U/L (0.0-3.6); CREATINE KINASE 98 UL (21-215); MAGNESIUM - SERUM 2.1 mg/dL (1.8-2.4)
[2019-03-11 06:29] LABS: TROPONIN-I 1.121 ng/mL (0.000-0.060)
--- NOTE | 2019-03-11 06:33 | NUR ---
REPORT CALLED TO NIGHAT ON THE FLOOR USING SBAR FORMAT. ORDERS PER DR BOGGS TO KEEP PT IN ED UNTIL DR BENÍTEZ ARRIVES TO EVALUATE PT.
--- NOTE | 2019-03-11 07:25 | NUR ---
PT REPORT CALLED TO CHANEL IN ICU, WILL START A SECOND IV LINE AND TRANSPORT THE PATIENT.
--- NOTE | 2019-03-11 08:14 | NUR ---
REC'D PT TO ICU FROM ER. DEAN OF ADMISSIONS STAFF HERE AT TIME OF ARRIVAL. CONCENTS AND PREOPS COMPLETE AND PT TAKEN TO DEAN OF ADMISSIONS IMMEDIATELY.
--- NOTE | 2019-03-11 09:45 | NUR ---
PT ARRIVED FROM TELE RN LYING FLAT IN BED. PT IS A&O BUT DROWSY BUT AWAKES EASILY. TELEMETRY APPLIED AND SINUS RHYTHM NOTED. PT HAS A FEMSTOP IN PLACE TO L.GROIN NO CURRENT S/S OF BLEEDING OR HEMATOMA NOTED. PERIPHERAL PULSES INTACT. PT HAS OLD DRSG TO R.GROIN CDI WITH NO S/S OF BLEEDING OR HEMATOMA NOTED. VSS AND BEING MONITERED PER POST PROCEDURE PROTCOL. FAMILY SURROUNDING BEDSIDE. NO CURRENT NEEDS. WILL CTM.
--- NOTE | 2019-03-11 10:57 | NUR ---
REMOVED SOME AIR/PRESSURE FROM L.GROIN FEMSTOP. L.GROIN PUNCTURE SITE VISIBLE AND NO S/S OF BLEEDING OR HEMATOMA NOTED. PERIPHERAL PULSES INTACT. VSS AND STILL BEING MONITERED PER POST PROCEDURE PROTOCOL. PT STILL HAS HER INTEGRILIN DRIPPING THROUGH HER L.HAND PIV ORDERED. PT IS FINALLY RESTING QUIETLY AND LAYING FLAT. NO CURRENT NEEDS AT THIS TIME. WILL CTM.
--- NOTE | 2019-03-11 12:07 | NUR ---
ALL OF THE PRESSURE AND AIR FROM FEMSTOP. L.GROIN PUNCTURE SITE CDI NO S/S OF BLEEDING OR HEMATOMA. VSS AND STILL BEING MONITERED. PERIPHERAL PULSES INTACT. PT VERBALIZED UNDERSTANDING TO REMAIN FLAT AND DENIES ANY QUESTIONS OR CONCERNS. CL IN REACH. WILL CTM.
--- NOTE | 2019-03-11 13:30 | NUR ---
PTS 4HR LAY IS COMPLETE. L.GROIN PUNCTURE SITE CLEAN WITHOUT ANY S/S OF BLEEDING OR HEMATOMA. PLACED GUAZE AND TEGADERMA AND WILL CTM SITE. ASSISTED PT UP IN BED AND SHE IS EATING NOW. VSS NO CURRENT NEEDS. WILL CTM.
[2019-03-11 15:35] LABS: CALC OSMOLALITY 285 mosm/kg (275-300); CALCIUM 7.7 mg/dL (8.5-10.1); CARBON DIOXIDE 26.8 mmol/L (21.0-32.0); CHLORIDE - SERUM 108 mmol/L (98-107); CKMB 95.7 U/L (0.0-3.6); CREATININE - SERUM 0.9 mg/dL (0.6-1.3); GLUCOSE 128 mg/dL (74-106); POTASSIUM - SERUM 4.2 mmol/L (3.5-5.1); PRO BNP 259 pg/mL (0-125); SODIUM 142 mmol/L (136-145); UREA NITROGEN 15 mg/dL (7-18); eGFR NON AFRICAN AMERICAN 67 mL/min (90-120)
[2019-03-11 15:37] LABS: CREATINE KINASE 639 UL (21-215)
[2019-03-11 15:40] LABS: TROPONIN-I 14.071 ng/mL (0.000-0.060)
--- NOTE | 2019-03-11 16:00 | NUR ---
PT SITTING UP IN BED RESTING QUIETLY WAITING ON DINNER. ASSISTED PT UP TO USE BR, SHE VOIDED WITHOUT ANY DIFFICULTIES. PT STATES SHE IS FEELING MUCH BETTER OVERALL. LUZ MARIA SEALS REMAINS CDI NO S/S OF BLEEDING OR HEMATOMA JUST BRUISING NOTED. WILL CPOC.
[2019-03-11] MEDS ORDERED: CELEXA20 MG PO (21:17)
[2019-03-11] MEDS ORDERED: RANITIDINE HCL150 M1 PO (21:18)
[2019-03-12] VITALS: BP 114/52
[2019-03-12 04:00] VITALS: BP 134/58
[2019-03-12 05:32] LABS: BASOPHILS 0.3 % (0-2); EOSINOPHILS 1.7 % (0-7); HEMATOCRIT 29.9 % (36.0-48.0); HEMOGLOBIN 9.7 g/dL (12-16); IMMATURE GRANULOCYTES 0.3 % (0-5); LYMPHOCYTES 31.3 % (15-50); MCH 37.3 pg (26.0-34.0); MCHC 32.4 g/dL (31.0-37.0); MEAN PLATELET VOLUME 9.9 fL (7.4-10.4); MONOCYTES 11.4 % (2-11); PLATELET COUNT 187 10x3/uL (130-400)
[2019-03-12 05:42] LABS: WBC 7.8 10x3/uL (4.8-10.8)
[2019-03-12 06:09] LABS: ALBUMIN 2.7 g/dL (3.4-5.0); ALKALINE PHOSPHATASE 85 U/L (46-116); ALT (SGPT) 28 U/L (10-68); BILIRUBIN - TOTAL 0.22 mg/dL (0.2-1.3); CALC OSMOLALITY 286 mosm/kg (275-300); CALCIUM 7.8 mg/dL (8.5-10.1); CARBON DIOXIDE 25.8 mmol/L (21.0-32.0); CHLORIDE - SERUM 112 mmol/L (98-107); GLUCOSE 104 mg/dL (74-106); POTASSIUM - SERUM 4.3 mmol/L (3.5-5.1); SODIUM 144 mmol/L (136-145); UREA NITROGEN 13 mg/dL (7-18)
[2019-03-12 06:10] LABS: CREATININE - SERUM 0.6 mg/dL (0.6-1.3); eGFR NON AFRICAN AMERICAN > 90 mL/min (90-120)
--- NOTE | 2019-03-12 07:30 | NUR ---
ASSESSMENT COMPLETED. ALERT AND ORIENTED. TELEMERTY SHOWS SR. IV TO LEFT HAND. DENIES ANY NEEDS. SR UP WITH CALL LIGHT IN REACH.
[2019-03-12] MEDS ORDERED: PLAVIX75 MG PO (08:56)
--- NOTE | 2019-03-12 10:40 | NUR ---
PT DCD. IV TAKEN OUT WITH TIP INTACT. INSTRUCTIONS GIVEN TO PT AND SPOUSE. TO PRIVATE CAR PER WHEELCHAIR
--- NOTE | 2019-03-12 15:13 | OP ---
PATIENT NAME: NANO BANERJEE MEDICAL RECORD: [id number] :53 LOCATION:D.M2 D.2119 ADMISSION DATE:03/11/19 SURGEON: ASTRID ROCKWELL MD DATE OF OPERATION: 03/11/2019 DATE OF SERVICE: 03/11/2019 PROCEDURES: 1. PTCA stent LAD diagonal. 2. PTCA, LAD. 3. Selective coronary angiography. INDICATION: Unstable angina and coronary artery disease. PROCEDURE IN DETAIL: After informed consent was obtained and after a detailed description of risks, benefits as well as alternative therapies, the patient elected to proceed with angiogram and angioplasty. The left femoral area was prepped and draped in normal sterile fashion. Left femoral artery was cannulated via modified Seldinger technique with placement of 6-Citizen [place] sheath. All catheters exchanged through this sheath. FINDINGS: There is wide patency of the previously placed stents in the LAD and circumflex. The diagonal had a subtotal stenosis with possible thrombus. This was addressed with a 1.5 x 2.0 balloon and a 2.0 x 8 stent. Initially, the stent would not pass through the LAD stent, the LAD was ballooned with a 2.5 balloon. Result was 0% residual yarsani MAGGIE-3 flow. OVERALL IMPRESSION: Successful percutaneous transluminal coronary angioplasty stent of the left anterior descending diagonal going from 99% initial stenosis to 0% residual. TRANSINT:[id number] Voice Confirmation ID: [id number] DOCUMENT ID: [id number] ASTRID ROCKWELL MD at 1513 CC: [id number] DICTATION DATE: 03/11/19 0855 MANAGER ACCESS: 03/11/19 1003 DIS IN 03/12/19 [facility] [address] [place] [id number]
--- NOTE | 2019-03-12 15:16 | MORECARE ---
CASE MANAGEMENT DISCHARGE SUMMARY PATIENT: NANO BANERJEE UNIT: [id number] ADM DATE: 03/11/19 AGE: 63 : 53 SEX: F ROOM/BED: D.9129 AUTHOR: BRYAN SANTANA PHYSICIAN: REFERRING PHYSICIAN: ASTRID ROCKWELL MD DATE OF SERVICE: 03/12/19 Discharge Plan Patient Name: [facility]ANO BANERJEE [facility] [facility] 1955 Planned Disposition: Home Anticipated Discharge Date: 03/12/19 Discharge Date: 03/12/2019 Expected LOS: 1 Initial Reviewer: [email or web address] Initial Review Date: 03/12/2019 Generated: 03/12/19 4:16 pm Patient Name: NANO BANERJEE Page [id number] at 1516 All edits/amendments must be made on the electronic document DICTATION DATE: 03/12/191515 CEMENT MASON APPRENTICE: RITA 03/12/19 151 RPT#: [id number] DC DATE:03/12/19 STATUS: DIS IN [facility] [address] [facility] [place] [address] END OF REPORT
== END 2019-03-12 10:53 | disposition home or self-care (01) ==
LOC: D.ER 05:28 → OBSVTIME 05:55 → D.M2 05:55 → D.EDHOLD 05:55 → D.M2 06:21 → D.ICU 07:27 → D.M2 09:14
PROVIDERS: Family Medicine; ADMIT Internal Medicine Interventional Cardiology; ATTEND Internal Medicine Interventional Cardiology
DX: I24.9 Acute ischemic heart disease, unspecified (principal); I25.110 Atherosclerotic heart disease of native coronary artery with unstable angina pectoris; I10 Essential (primary) hypertension; E78.5 Hyperlipidemia, unspecified; Z86.73 Personal history of transient ischemic attack (TIA), and cerebral infarction without residual deficits; K21.9 Gastro-esophageal reflux disease without esophagitis

== ENCOUNTER → 2020-05-31 08:54 | Outpatient (CLI) | payer MEDICARE, OTHER ==
[2019-03-11 09:41] VITALS: BMI 33.9
[~2020-05-31 08:54] MED LIST changes: +CELEXA20 MG PO; +RANITIDINE HCL150 M1 PO
== END | disposition home or self-care (01) ==
LOC: D.HCCARDIO 08:54
PROVIDERS: ATTEND Internal Medicine Cardiovascular Disease
DX: I25.10 Atherosclerotic heart disease of native coronary artery without angina pectoris (principal)

== ENCOUNTER 2020-06-12 11:35 | Outpatient (CLI) | payer MEDICARE, OTHER ==
[~2020-06-12] VITALS: Ht 162.6 cm; Wt 92.8 kg
--- NOTE | ~2020-06-12 | HEMODYNAMI ---
PATIENT:NANO BANERJEE MEDICAL RECORD: [id number] : 53 LOCATION:[facility] ADMISSION DATE: 06/12/20 Generatedon:06/12/202013:48 Patient name: NANO BANERJEE Patient #: [id number] : 1955 Date of study: 06/12/2020 Page: Of Hemodynamic Procedure Report Patient Data Patient Demographics Procedure consent was obtained First Name: NANO Gender: Female Last Name: : 1955 Middle Initial: B Age: 64 year(s) Patient #: [id number] Race: SSN: [id number] Additional ID: [id number] Contact details Address: [address] [place] [address] State: [place] City: [place] Zip code: [address] Past Medical History Allergies: No known allergies Admission Admission Data Admission Date: 06/12/2020 Admission Time: 11:35 Arrival Date: 06/12/2020 Arrival Time: 13:00 Admit Source: Other Insurance Payor: Medicare [facility] #: [id number] Height (in.): 63.78 BSA: 1.96 (m2) Height (cm.): 162 BMI: 35.06 (kg/m2) Weight (lbs.): 202.83 Weight (kg.): 92 Lab Results Lab Result Date: 06/12/2020 Lab Result Time: 0:00 Biochemistry Name Units Result Min Max BUN mg/dl 14 --(--*-)-- 7 18 Creatinine mg/dl 0.9 --(-*--)-- 0.6 1.3 eGFR ml/min 67.83665 *-(----)-- 90 120 NONAFRICAN CBC Name Units Result Min Max Hemoglobin g/dl 12.7 -*(----)-- 13.5 17.5 Procedure Procedure Types Cath Procedure Diagnostic Procedure [facility] w/Coronaries Sedation Charges Procedure Description Procedure Date Procedure Date: 06/12/2020 Procedure Start Time: 13:33 Procedure End Time: 13:47 Procedure Staff Name Function Victor Hugo Mcclellan MD Performing Physician Jazmyne Eubanks RT Monitor Lupe Quezada RT Scrub Luis Chin RN Nurse Procedure Data Cath Procedure Fluoroscopy Diagnostic fluoroscopy Total fluoroscopy Time: 1.2 time: 1.2 min min Diagnostic fluoroscopy Total fluoroscopy dose: 338 dose: 338 mGy mGy Contrast Material Contrast Material Type Amount (ml) Isovue 300 40 Entry Location Entry Primary Successful Side Size Upsize Upsize Entry Closure Succes sful Closure Location (Fr) 1 (Fr) 2 (Fr) Remarks Device Remarks Femoral Right 5 Fr Exoseal artery Estimated blood loss: 5 ml Diagnostic catheters Device Type Used For End Catheter Placement MULTIPACK JL 4.0 5Fr Left Coronary catheter Angiography MULTIPACK 3DRC 5Fr Right Coronary catheter Angiography MULTIPACK Pigtail 5 Fr LV Angiography catheter Procedure Complications No complications Procedure Medications Medication Administration Route Dosage Oxygen etCO2 Nasal cannula 2 l/min Lidocaine 2% added to field 20 Heparin Flush Bag added to field 2 bags (1000units/500ml NS) Phenergan 25 mg Zofran I.V. 4 mg 0.9% NaCl I.V. 100 ml/hr Versed I.V. 2 mg Fentanyl I.V. 100 mcg Versed I.V. 1 mg Hemodynamics Rest BSA: 1.96 (m2) HGB: 12.7 (g/dl) O2 Consumption: Estimated: 191.56 (ml/min) O2 Co nsumption indexed: Estimated:97.73 (ml/min/m) Heart Rate: 81 (bpm) Pressure Samples Time Site Value (mmHg) Purpose Heart Use Rate(bpm) 13:39 LV 146/-6,30 Snapshot 83 Gradients Valve Time Site Site Mean SEP/DFP Peak To Heart Use 1 2 (mmHg) (sec/min) Peak Rate (mmHg) (bpm) Aortic 13:40 LV AO 82 Snapshots Pre Cath Intra NCS Post Cath Vital Signs Time Heart Resp SPO2 etCO2 NIBP (mmHg) Rhythm Pain Sedation Rate (ipm) (%) (mmHg) Status Level (bpm) 13:21:44 90 24 97 0 178/84(103) NSR 0 (11) 10(A) , No pain 13:26:07 84 14 94 26.2 160/71(106) NSR 0 (11) 10(A) , No pain 13:30:27 81 28 99 38.9 150/74(102) NSR 0 (11) 10(A) , No pain 13:34:49 82 10 95 13.4 136/65(98) NSR 0 (11) 9(A) , No pain 13:39:05 90 10 97 43.4 147/73(94) NSR 0 (11) 9(A) , No pain 13:43:25 79 17 99 41.1 142/69(110) NSR 0 (11) 10(A) , No pain 13:47:41 78 32 99 41.9 143/67(108) NSR 0 (11) 10(A) , No pain Medications Time Medication Route Dose Verified Delivered Reason Notes Eff ectiveness by by 13:19:22 Oxygen etCO2 2 Victor Hugo Buffie used for Nasal l/min Eleuterio Chin RN procedure cannula 13:19:28 Lidocaine 2% added 20ml Victor Hugo Victor Hugo for local to vial Eleuterio Mcclellan MD anesthetic field 13:19:36 Heparin Flush added 2 Victor Hugo Victor Hugo used for Bag to bags Eleuterio Mcclellan MD procedure (1000units/500ml field NS) 13:19:53 Phenergan IM to 25 mg Victor Hugo Buffie Per lt gm Eleuterio Chin RN physician 13:20:00 Zofran I.V. 4 mg Victor Hugo Buffie Per Eleuterio Chin RN physician 13:21:15 0.9% NaCl I.V. 100 Victor Hugo Buffie Per ml/hr Eleuterio Chin RN physician 13:33:18 Versed I.V. 2 mg Victor Hugo Buffie for Eleuterio Chin RN sedation 13:33:23 Fentanyl I.V. 100 Victor Hugo Buffie for mcg Eleuterio Chin RN sedation 13:37:28 Versed I.V. 1 mg Victor Hugo Buffie for Eleuterio Chin RN sedation Procedure Log Time Note 13:04:57 Diagnostic Cath Status : Elective 13:05:43 Informed consent obtained and on chart 13:06:55 Arrival Date: 06/12/2020 1:00:00 PM 13:07:33 Admit Source: Other 13:07:36 Insurance Payor : Medicare 13:08:35 Lupe WARREN(R) sent for patient. Start room use. 13:08:37 Time tracking: Regular hours (M-F 7:00 - 5:00) 13:09:33 Plan of Care:Hemodynamics will remain stable., Cardiac rhythm will remain stable., Comfort level will be maintained., Respiratory function will remain adequate., Patient/ family verbilizes understanding of procedure., Procedure tolerated without complication., Recovers from procedure without complications.. 13:10:01 Patient received from Pre/Post Procedure Room to CCL 2 Alert and oriented. Tansferred to table in Supine position. 13:10:03 Warm blankets applied, and sigrid hugger turned on for patient comfort. 13:10:03 Correct patient and procedure confirmed by team. 13:10:45 ECG and BP/O2 sat monitors applied to patient. 13:11:25 Patient Height : 63.78 inches 13:11:28 Patient Weight : 202.83 lbs 13:11:57 Lab Result : eGFR NONAFRICAN 67.85112 ml/min 13:11:57 Lab Result : Creatinine 0.9 mg/dl 13:11:57 Lab Result : BUN 14 mg/dl 13:11:57 Lab Result : Hemoglobin 12.7 g/dl 13:19:22 Oxygen 2 l/min etCO2 Nasal cannula was administered by Luis Chin RN; used for procedure; Verbal order read back and verified. 13:19:28 Lidocaine 2% 20ml vial added to field was administered by Victor Hugo Mcclellan MD; for local anesthetic; Verbal order read back and verified. 13:19:36 Heparin Flush Bag (1000units/500ml NS) 2 bags added to field was administered by Victor Hugo Mcclellan MD; used for procedure; Verbal order read back and verified. 13:19:53 Phenergan 25 mg IM to lt gm was administered by Luis Chin RN; Per physician; Verbal order read back and verified. 13:20:00 Zofran 4 mg I.V. was administered by Luis Chin RN; Per physician; Verbal order read back and verified. 13:20:26 Vital chart was started 13:20:27 Baseline sample Acquired. 13:20:33 Rhythm: sinus tachycardia 13:20:34 Full Disclosure recording started 13:20:38 H&P Date Dictated: 06/12/2020 Within 30 days and on chart., H&P Addendum completed by physician on day of procedure. (MUST COMPLETE FOR ALL OUTPATIENTS). 13:20:39 Pre-procedure instructions explained to patient. 13:20:40 Pre-op teaching completed and patient verbalized understanding. 13:20:42 Family in patients room. 13:20:43 Patient NPO since Midnight. 13:20:52 Is the patient allergic to Iodine/contrast media? No. 13:20:53 Was the patient premedicated? Yes 13:20:54 Is patient on blood thinner?No 13:21:12 Patient diabetic? No. 13:21:15 0.9% NaCl 100 ml/hr I.V. was administered by Luis Chin RN; Per physician; Verbal order read back and verified. 13:21:20 Previous problem with sedation/anesthesia? Yes nausea 13:21:21 Snore? Yes 13:21:22 Sleep apnea? No 13:21:23 Deviated septum? No 13:21:24 Opens mouth fully? Yes 13:21:26 Sticks out tongue? Yes 13:21:28 Airway obstruction? No ? 13:21:31 Dentures? No ? 13:21:38 Pre procedure: right dorsailis pedis pulse 2+ Normal; easily identifiable; not easily obliterated 13:21:41 Patient pain scale 0/10 ?. 13:21:49 IV patent on arrival in left forearm with 0.9% NaCl at [facility]. 13:21:51 Lab results completed and on chart. 13:32:04 Stress Test: yes; abnormal ? 13:32:10 Right groin area was prepped with chlora-prep and draped in sterile fashion 13:32:11 Alarms reviewed by R. N. 13:32:11 Sharps counted by scrub and verified by R.N. 13:32:12 Physician arrived 13:32:12 --------ALL STOP TIME OUT------ 13:32:14 Final Timeout: patient, procedure, and site verified with staff and physician. All members of the team are in agreement. 13:32:15 Right groin site verified by team. 13:32:18 Fire Safety Assessment: A--An alcohol-based skin anteseptic being used preoperatively., C--Open oxygen or nitrous oxide is being used., D--An ESU, laser, or fiber-optic light is being used. 13:32:21 Physical assessment completed. ASA score P 2 - A patient with mild systemic disease as per Victor Hugo Mcclellan MD. 13:32:31 2) 60-89 Mildly reduced kidney function, and other findings (as for stage 1) point to kidney disease. 13:32:51 Maximum allowable contrast dose (3.7 X eGFR X 0.75)185 ml. 13:32:54 Sedation plan: IV Moderate Sedation Medication:Versed, Fentanyl 13:32:59 Use device set Femoral Dx 13:33:00 ACIST Syringe (83354) opened to sterile field. 13:33:00 Bag Decanter (2002S) opened to sterile field. 13:33:01 Medline Cath Pack ([id number]) opened to sterile field. 13:33:02 ACIST Hand Control (90588) opened to sterile field. 13:33:03 ACIST Manifold (53091) opened to sterile field. 13:33:03 DIAGNOSTIC Multipack 5Fr catheter set (CW5880) opened to sterile field. 13:33:04 Tegaderm 4 x 4 (1626W) opened to sterile field. 13:33:05 SHEATH 5FR [place] (MGR886) opened to sterile field. 13:33:05 EMERALD Guide Wire (507-519) opened to sterile field. 13:33:09 Procedure started. 13:33:12 Local anesthetic to right femoral artery with Lidocaine 2% by Victor Hugo Mcclellan MD.INITIAL ACCESS ONLY 13:33:18 Versed 2 mg I.V. was administered by Luis Chin RN; for sedation; Verbal order read back and verified. 13:33:23 Fentanyl 100 mcg I.V. was administered by Luis Chin RN; for sedation; Verbal order read back and verified. 13:33:23 A 5 Fr sheath was inserted into the Right Femoral artery 13:34:32 A MULTIPACK JL 4.0 5Fr catheter was advanced over the wire and used for Left Coronary Angiography. 13:35:47 LCA angiography performed. 13:35:50 Injector settings: Ml/sec: 3, Volume: 6, 13:37:18 Catheter removed. 13:37:22 A MULTIPACK 3DRC 5Fr catheter was advanced over the wire and used for Right Coronary Angiography. 13:37:28 Versed 1 mg I.V. was administered by Luis Chin RN; for sedation; Verbal order read back and verified. 13:37:40 RCA angiography performed. 13:37:43 Injector settings: Ml/sec: 3, Volume: 6, 13:38:05 Catheter removed. 13:38:12 A MULTIPACK Pigtail 5 Fr catheter was advanced over the wire and used for LV Angiography. 13:39:22 LV hemodynamics recorded. 13:39:23 LV gram done using BRUCE 13:39:25 Injector settings: Ml/sec: 5, Volume: 15, 13:39:30 EF : 60 % 13:40:10 Catheter removed. 13:40:12 EXOSEAL 5Fr (EX500) opened to sterile field. 13:40:19 Sheath removed intact; hemostasis achieved with Exoseal to the Right Femoral artery. 13:40:21 Procedure ended.(Physican Out) 13:40:40 Fluoroscopy time 01.20 minutes. 13:40:44 Fluoroscopy dose: 338 mGy 13:40:44 Flurop Dose total: 338 13:40:54 Dose Area Product 56121 mGy/cm. 13:40:58 Contrast amount:Isovue 300 40ml. 13:41:00 Maximum allowable dose exceeded? No. 13:41:01 Sharps counted by scrub and verified by R.N. 13:41:18 Insertion/operative site no bleeding no hematoma. 13:41:21 Post-op/insertion site Right Femoral artery dressed using a 4 x 4 and Tegaderm. 13:41:23 Post Procedure Pulses reassessed and unchanged 13:41:25 Post procedure rhythm: unchanged. 13:41:28 Estimated blood loss: 5 ml 13:41:30 Post procedure instruction explained to patient.Patient verbalizes understanding. 13:41:30 Patient needs reinforcement of post procedure teaching. 13:42:00 Procedure type changed to Cath procedure, Diagnostic procedure, LHC, C w/Coronaries, Sedation Charges 13:47:18 Procedure and supply charges have been captured, reviewed, submitted and are correct. 13:47:22 Procedure Complication : No complications 13:47:24 Vital chart was stopped 13:47:26 [facility] Findings: mild to moderate CAD (<70%) 13:47:27 Operative report dictated upon procedure completion. 13:47:28 See physician's report for complete and final results. 13:47:30 Report given to Pre/Post Procedure Room. 13:47:32 Patient transfered to Pre/Post Procedure Room with Stretcher. 13:47:34 Procedure ended. 13:47:34 Full Disclosure recording stopped 13:47:40 End room use (Document Last) Device Usage Item Name Manufacture Quantity Catalog Hospital Part Current Minimal L ot# / Number Charge Number Stock Stock Serial# Code ACIST Acist 1 17260 [id number] 094937 378761 20 Syringe Medical (56114) Systems Inc Bag Microtek 1 2001S 064473 36992 398301 5 Decanter Medical Inc. () Medline Medline 1 [id number] 862608 79099 726052 5 Cath Pack ([id number]) ACIST Hand Acist 1 86367 933451 892951 550551 5 Control Medical (78433) Systems Inc ACIST Acist 1 41175 882580 856429 249480 5 Manifold Medical (94024) Systems Inc DIAGNOSTIC Cardinal 1 [id number] 332336 94367 421896 30 Multipack Health 5Fr catheter set (NN8283) Tegaderm 4 3M 1 1626W 383525 901137 835661 5 x 4 (1626W) SHEATH 5FR Terumo 1 CIQ642 315736 385469 417105 5 [place] (ZJV833) [facility] Cardinal 1 502-218 768502 382901 888684 5 Guide Wire [facility] (502455) MULTIPACK Cardinal 1 101993 5 JL 4.0 5Fr Health catheter MULTIPACK Cardinal 1 358805 5 3DRC 5Fr Health catheter MULTIPACK Cardinal 1 089398 5 Pigtail 5 Health Fr catheter EXOSEAL 5Fr Cardinal 1 EX500 839642 525124 438893 10 (EX500) Health Signature Audit [place] Stage Time Signature Unsigned Intra-Procedure 06/12/2020 Jazmyne Eubanks 1:45:11 PM RT(R) Intra-Procedure 06/12/2020 Victor Hugo Mcclellan MD 1:48:03 PM Signatures Performing Physician : Signature : Victor Hugo Mcclellan MD Date : Time : Monitor : Jazmyne Eubanks RT Signature : Date : Time : Nurse : Buffie Chin RN Signature : Date : Time : [address] [place] [address]
[2020-06-12] MEDS ORDERED: FISH OIL 1,0001 CA1 PO (12:21)
[2020-06-12] MEDS ORDERED: NITROQUICK0.4 MG SL (12:22)
[2020-06-12] MEDS ORDERED: MULTI-DAY VITAM1 TAB PO (12:22)
[2020-06-12 12:26] VITALS: BP 150/69; Ht 162.6 cm; Wt 92.8 kg
[2020-06-12 12:38] LABS: HEMATOCRIT 40.1 % (36.0-48.0); HEMOGLOBIN 12.7 g/dL (12-16); LYMPHOCYTES 30.6 % (15-50); MCHC 31.7 g/dL (31.0-37.0); MCV 94.8 fL (80.0-100.0); MEAN PLATELET VOLUME 9.4 fL (7.4-10.4); NEUTROPHILS 59.4 % (40-80); RBC 4.23 10x6/uL (4.00-5.40); RDW 12.4 % (11.5-14.5); WBC 7.9 10x3/uL (4.8-10.8)
[2020-06-12 12:41] LABS: PLATELET COUNT 257 10x3/uL (130-400)
[2020-06-12 12:50] LABS: ANION GAP 10.4 mmol/L (8-16); CALCIUM 8.5 mg/dL (8.5-10.1); CARBON DIOXIDE 28.7 mmol/L (21.0-32.0); CHOL - HDL RATIO 3.2 ratio (2.3-4.1); CREATININE - SERUM 0.9 mg/dL (0.6-1.3); LDL-HDL RATIO 1.7 ratio (1.5-3.5); POTASSIUM - SERUM 4.1 mmol/L (3.5-5.1)
--- NOTE | 2020-06-12 13:56 | NUR ---
PT ARRIVED BY STRETCHER. PLACED ON MONITORS. ASSESSMENT COMPLETED. VSS AT THIS TIME. CALL LIGHT WITHIN REACH. FAMILY AT BEDSIDE. NO NEEDS AT THIS TIME.
--- NOTE | 2020-06-12 14:10 | NUR ---
RIGHT GROIN DRESSING C/D/I. NO S/S OF HEMATOMA NOTED. CALL LIGHT WITHIN REACH. VSS AT THIS TIME. FAMILY AT BEDSIDE.
--- NOTE | 2020-06-12 14:40 | NUR ---
RIGHT GROIN DRESSING C/D/I. NO S/S OF HEMATOMA NOTED. CALL LIGHT WITHIN REACH. VSS AT THIS TIME. FAMILY AT BEDSIDE.
--- NOTE | 2020-06-12 15:10 | NUR ---
RIGHT GROIN DRESSING C/D/I. NO S/S OF HEMATOMA NOTED. VSS. HEAD OF BED INC TO 30 DEGREES. TOLERATED WELL. SET UP WITH SANDWICH TRAY AND DRINK. DENIES NAUSEA/PAIN AT THIS TIME. FAMILY AT BEDSIDE.
--- NOTE | 2020-06-12 15:59 | NUR ---
RIGHT GROIN DRESSING C/D/I. NO S/S OF HEMATOMA NOTED. VSS. PIV D/C'D WITH CATH TIP INTACT. TOLERATED WELL. PT INSTRUCTED TO GET UP AND DRESSED AT THIS TIME. FAMILY AT BEDSIDE TO ASSIST.
--- NOTE | 2020-06-12 16:10 | NUR ---
DISCUSSED DISCHARGE INSTRUCTIONS WITH PT AND PT'S FAMILY. THEY VOICED UNDERSTANDING.
--- NOTE | 2020-06-12 16:15 | NUR ---
RIGHT GROIN DRESSING C/D/I. NO S/S OF HEMATOMA NOTED. PT AMBULATED TO RESTROOM. VOIDED WITHOUT DIFFICULTY. PT TAKEN DOWN TO VEHICLE BY WHEELCHAIR. NO S/S OF DISTRESS NOTED. ALL BELONGINGS AND PAPERWORK IN HAND.
== END 2020-06-12 16:15 | disposition home or self-care (01) ==
LOC: D.CATH 11:35
PROVIDERS: ATTEND Internal Medicine Cardiovascular Disease
DX: I25.119 Atherosclerotic heart disease of native coronary artery with unspecified angina pectoris (principal); R94.39 Abnormal result of other cardiovascular function study; E78.5 Hyperlipidemia, unspecified; I10 Essential (primary) hypertension